=== PATIENT | male | born 1980 | race Caucasian/White ===

== ENCOUNTER → 2020-05-07 10:52 | Outpatient (CLI) | payer OTHER, SELFPAY ==
[2020-05-07 11:58] LABS: COVID19 -Nasal RAPID Negative (Negative)
== END ==
PROVIDERS: Visit Provider Family Medicine Sleep Medicine
DX: Z20.822 Contact with and (suspected) exposure to COVID-19 (principal)
CPT/HCPCS: 87635; C9803

== ENCOUNTER → 2020-06-06 15:00 | Outpatient (CLI) | payer OTHER, SELFPAY ==
[2020-06-06 16:02] LABS: COVID19 -Nasal RAPID Negative (Negative)
== END ==
PROVIDERS: Visit Provider Family Medicine Sleep Medicine
DX: Z20.822 Contact with and (suspected) exposure to COVID-19 (principal)
CPT/HCPCS: 87635; C9803

== ENCOUNTER → 2020-10-19 12:41 | Outpatient (CLI) | payer OTHER, SELFPAY ==
--- NOTE | 2020-10-19 | DI.RAD.S_ITS ---
PROCEDURE: FL BARIUM SWALLOW W AIR COMPARISON: None. INDICATIONS: Gastro-esophageal reflux disease FINDINGS: No esophageal stricture identified. Mildly delayed esophageal clearance and esophageal dysmotility. No mucosal abnormalities are seen. No spontaneous observed gastroesophageal reflux, however the patient did have an episode of emesis during the examination. Grossly normal appearance of the stomach where visualized. Normal transit of a calibrated barium tablet. IMPRESSION: Mild esophageal dysmotility. Dictated by: Jonathon Puente M.D. on 10/19/2020 at 14:36 Approved by: Jonathon Puente M.D. on 10/19/2020 at 14:38
== END ==
PROVIDERS: Referring Provider Otolaryngology; Visit Provider Otolaryngology
DX: K22.4 Dyskinesia of esophagus (principal); K21.9 Gastro-esophageal reflux disease without esophagitis; R05 Cough
CPT/HCPCS: 74221